=== PATIENT | female | born 2000 | race Caucasian/White ===

== ENCOUNTER 2023-02-03 07:44 | Observation (INO) | payer OTHER ==
[~2023-02-03] VITALS: Ht 149.9 cm; Wt 68.0 kg
== END 2023-02-03 11:30 | disposition home or self-care (01) ==
LOC: 8 EST LDRP 07:44
PROVIDERS: ADMIT Obstetrics & Gynecology; ATTEND Obstetrics & Gynecology
DX: O62.9 Abnormality of forces of labor, unspecified (principal); Z3A.40 40 weeks gestation of pregnancy
CPT/HCPCS: 59025; 76818; 76805; G0378 ×2